=== PATIENT | male | born 1990 | race Caucasian/White ===

== ENCOUNTER 2022-01-29 00:15 | Inpatient (IN) | payer OTHER ==
[~2022-01-29] VITALS: Ht 177.8 cm; Wt 82.0 kg
[2022-01-29 02:32] LABS: COVID AG,FIA SOURCE NASAL SWAB
[2022-01-29 03:12] LABS: INFLUENZA TYPE A NEGATIVE FOR TYPE A (NEGATIVE); INFLUENZA TYPE B NEGATIVE FOR TYPE B (NEGATIVE)
[2022-01-29] MEDS ORDERED: KETOROLAC TROMETHAMINE 30 MG/ML VIAL IM ONE (03:45)
[2022-01-29 04:00] VITALS: BP 135/88
[2022-01-29] MEDS ORDERED: NICOTINE 14 MG/24 HOUR PATCH TD PRN (10:15)
[2022-01-29] MEDS ORDERED: ACETAMINOPHEN 325 MG TABLET PO PRN (10:15)
[2022-01-29] MEDS ORDERED: CloNIDine HCL 0.1 MG TABLET PO PRN (10:15)
[2022-01-29] MEDS ORDERED: DOCUSATE SODIUM 100 MG CAPSULE PO PRN (10:15)
[2022-01-29] MEDS ORDERED: PETROLATUM,WHITE 28 GM JELLY TP PRN (10:15)
[2022-01-29] MEDS ORDERED: ONDANSETRON HCL 4 MG TABLET PO PRN (10:15)
[2022-01-29] MEDS ORDERED: GuaiFENesin/D-METHORPHAN [SUGAR-FREE] 200-20MG/10 ML SYRUP UDCUP PO PRN (10:15)
[2022-01-29] MEDS ORDERED: MAGNESIUM HYDROXIDE SUSPENSION 30 ML UDCUP PO PRN (10:15)
[2022-01-29] MEDS ORDERED: ALBUTEROL SULFATE HFA 90 MCG/PUFF 8 GM INHALER IH PRN (10:15)
[2022-01-29] MEDS ORDERED: MAG HYDROX/AL HYDROX/SIMETH ES 30 ML SUSPENSION UDCUP PO PRN (10:15)
[2022-01-29] MEDS ORDERED: LOPERAMIDE HCL 2 MG CAPSULE PO PRN (10:15)
[2022-01-29 10:55] VITALS: BP 141/76
[2022-01-29] MEDS: IBUPROFEN 400 MG TABLET PO PRN ×2 (11:26→22:27)
[2022-01-29 17:06] VITALS: BP 135/88
[2022-01-29 20:19] VITALS: BP 125/72
[2022-01-29] MEDS: POLYETHYLENE GLYCOL 3350 17 GM PACKET PO SCH ×2 (21:00→22:15)
[2022-01-29] MEDS ORDERED: PHENYLEPHRINE/COCOA BUTTER RECTAL SUPPOSITORY PR ONE (23:30)
[2022-01-30] MEDS: ZOLPIDEM TARTRATE 5 MG TABLET PO PRN ×2 (00:10→20:06)
[2022-01-30 04:37] VITALS: BP 126/76
[2022-01-30 07:45] VITALS: BP 123/71
[2022-01-30] MEDS: POLYETHYLENE GLYCOL 3350 17 GM PACKET PO SCH ×2 (08:32→20:09)
[2022-01-30] MEDS ORDERED: PHENYLEPHRINE/COCOA BUTTER RECTAL SUPPOSITORY PR PRN (13:15)
[2022-01-30 15:36] VITALS: BP 130/76
[2022-01-30 19:58] VITALS: BP 125/79
[2022-01-31] MEDS: IBUPROFEN 400 MG TABLET PO PRN (00:18)
[2022-01-31 04:24] VITALS: BP 125/68
[2022-01-31 08:07] VITALS: BP 123/73
[2022-01-31] MEDS: POLYETHYLENE GLYCOL 3350 17 GM PACKET PO SCH (08:29)
[2022-01-31] MEDS ORDERED: POLY17PO47 PO (12:33)
[2022-01-31 16:12] VITALS: BP 135/78
== END 2022-01-31 16:00 | DRG 391 ==
LOC: EMS 00:16 → 6S 06:09
PROVIDERS: ADMIT Internal Medicine; ATTEND Internal Medicine
DX: K59.00 Constipation, unspecified (principal); U07.1 COVID-19; K62.3 Rectal prolapse; K64.4 Residual hemorrhoidal skin tags; F17.210 Nicotine dependence, cigarettes, uncomplicated; Z79.899 Other long term (current) drug therapy
CPT/HCPCS: 74019; 74176; 87804; 99285; J1885